=== PATIENT | male | born 1970 | race Caucasian/White ===

== ENCOUNTER 2017-09-12 12:37 | Inpatient (IN) | payer BC ==
[~2017-09-12 12:37] MED LIST: BUPIVACAINE 0.25%/EPI (MDV) 50 ML VIAL INJ; SUGAMMADEX SODIUM 200 MG/2 ML VIAL IV
[2017-09-12] MEDS: ONDANSETRON 4 MG INJ IV ×2 (13:28→18:17)
[2017-09-12] MEDS: SOD CHLORIDE 0.9% 1,000 ML IV ×3 (13:28→23:47)
[2017-09-12] MEDS: morphine 4 MG/ML VIAL IV (13:28)
[2017-09-12 13:36] LABS: ADD MAN DIFF? NO
[2017-09-12 13:39] LABS: BASOPHILS % 0.3 % (0.0-2.0); EOSINOPHILS # 0.1 10^3/ul (0.0-0.5); EOSINOPHILS % 0.9 % (0.0-7.0); LYMPHOCYTES # 1.7 10^3/ul (0.8-2.9); LYMPHOCYTES % 14.7 % (15.0-51.0); MEAN CORPUSCULAR HEMOGLOBIN 30.2 pg (29.0-33.0); MEAN CORPUSCULAR HGB CONC 34.1 g/dl (32.0-37.0); MEAN CORPUSCULAR VOLUME 88.4 fl (82.0-101.0); MEAN PLATELET VOLUME 9.9 fl (7.4-10.4); MONOCYTES % 8.9 % (0.0-11.0); NEUTROPHIL # 8.7 10^3/ul (1.6-7.5); NEUTROPHILS % 74.9 % (39.0-77.0); PLATELET COUNT 234 10^3/UL (140-415); RED BLOOD COUNT 4.64 10^6/ul (4.70-6.10); RED CELL DISTRIBUTION WIDTH 12.7 % (11.5-14.5)
[2017-09-12 13:39] LABS: WHITE BLOOD COUNT 11.7 10^3/ul (4.8-10.8)
[2017-09-12 13:58] LABS: ALANINE AMINOTRANSFERASE 45 IU/L (13-69); ALBUMIN 4.5 g/dl (3.3-4.9); ALBUMIN/GLOBULIN RATIO 1.36; ALKALINE PHOSPHATASE 67 IU/L (42-121); ANION GAP 13 (8-16); ASPARTATE AMINO TRANSFERASE 31 IU/L (15-46); BILIRUBIN,INDIRECT 0.7 mg/dl (0-1.1); BILIRUBIN,TOTAL 0.7 mg/dl (0.2-1.3); BLOOD UREA NITROGEN 15 mg/dl (7-20); CALCIUM 9.4 mg/dl (8.4-10.2); CARBON DIOXIDE 30 mmol/L (21-31); CHLORIDE 101 mmol/L (97-110); CREATININE 0.89 mg/dl (0.61-1.24); GLUCOSE 107 mg/dl (70-220); LIPASE 38 U/L (23-300); POTASSIUM 4.2 mmol/L (3.5-5.1); SODIUM 140 mmol/L (135-144); TOTAL PROTEIN 7.8 g/dl (6.1-8.1)
[2017-09-12] MEDS: PIPER-TAZO 3.375 GM IV (PMX) 100 ML IVPB ×2 (14:23→22:24)
[2017-09-12] MEDS: HYDROmorphONE 1 MG/ML SYG IV (14:23)
[2017-09-12 15:01] LABS: ADD UMIC NO; UR ASCORBIC ACID NEGATIVE (NEGATIVE); UR BILIRUBIN (Dip) NEGATIVE (NEGATIVE); UR BLOOD (Dip) NEGATIVE (NEGATIVE); UR CLARITY CLEAR (CLEAR); UR COLOR YELLOW (YELLOW); UR GLUCOSE (Dip) NEGATIVE (NEGATIVE); UR KETONES (Dip) NEGATIVE (NEGATIVE); UR LEUKOCYTE ESTERASE (Dip) NEGATIVE Leu/ul (NEGATIVE); UR NITRITE (Dip) NEGATIVE (NEGATIVE); UR SPECIFIC GRAVITY (Dip) 1.021 (1.003-1.030); UR TOTAL PROTEIN (Dip) NEGATIVE (NEGATIVE); UR UROBILINOGEN (Dip) NEGATIVE (NEGATIVE)
[2017-09-12] MEDS ORDERED: ACETAMINOPHEN 325 MG TAB PO ×2 (15:30→16:00)
[2017-09-12] MEDS ORDERED: ONDANSETRON 4 MG INJ IV ×3 (15:30→18:00)
[2017-09-12] MEDS ORDERED: HYDROCODONE/APAP (5/325) TAB PO (16:00)
[2017-09-12] MEDS ORDERED: NACL 0.9% 3 ML SYG IV (16:00)
[2017-09-12] MEDS ORDERED: ROCURONIUM 50 MG INJ (16:52)
[2017-09-12] MEDS ORDERED: PROPOFOL 20 ML (16:52)
[2017-09-12] MEDS ORDERED: CEFAZOLIN 1 GM INJ (16:52)
[2017-09-12] MEDS ORDERED: NEOSTIGMINE 3 MG/3 ML SYRINGE (16:52)
[2017-09-12] MEDS ORDERED: GLYCOPYRROLATE 0.4 MG INJ (16:52)
[2017-09-12] MEDS ORDERED: DEXAMETHASONE 4 MG/ML 1 ML INJ (16:52)
[2017-09-12] MEDS ORDERED: FENTAnyl 50 MCG/ML VIAL (16:52)
[2017-09-12] MEDS ORDERED: ONDANSETRON 4 MG INJ (16:52)
[2017-09-12] MEDS ORDERED: MIDAZOLAM 1 MG/ML 2 ML INJ (16:52)
[2017-09-12] MEDS ORDERED: ALBUTEROL 0.083% (NEB) 2.5 MG/3 ML AMP HHN ×2 (17:30)
[2017-09-12] MEDS ORDERED: MIDAZOLAM 1 MG/ML 2 ML INJ IV (17:30)
[2017-09-12] MEDS ORDERED: MEPERIDINE 25 MG INJ IV ×2 (17:30)
[2017-09-12] MEDS ORDERED: LABETALOL HCL 20MG INJ IV ×2 (17:30)
[2017-09-12] MEDS ORDERED: OXYCODONE/ACETAMINOPHEN (5/325) TAB PO ×5 (17:30→18:00)
[2017-09-12] MEDS ORDERED: TRIMETHOBENZAMIDE 100 MG/ML VIAL IM ×2 (17:30)
[2017-09-12] MEDS ORDERED: DIPHENHYDRAMINE 50 MG INJ IV ×2 (17:30)
[2017-09-12] MEDS ORDERED: FENTAnyl 50 MCG/ML VIAL IV ×5 (17:30)
[2017-09-12] MEDS ORDERED: HYDROmorphONE (0.2 MG/ML) 10ML SYG IV ×6 (17:30)
[2017-09-12] MEDS ORDERED: IPRATROPIUM (NEB) 0.5 MG/2.5 ML AMP HHN ×2 (17:30)
[2017-09-12] MEDS ORDERED: EPHEDrine SULFATE 50 MG/5 ML SYG IV ×2 (17:30)
[2017-09-12] MEDS ORDERED: hydrALAzine 20 MG INJ IV ×2 (17:30)
[2017-09-12] MEDS: BUPIVACAINE 0.25%/EPI (SDV) 30 ML INJ INJ (17:34)
[2017-09-12] MEDS ORDERED: KETOROLAC 30 MG INJ (17:45)
[2017-09-12] MEDS ORDERED: morphine 2 MG INJ IV (18:00)
[2017-09-12] MEDS: FENTAnyl 50 MCG/ML VIAL IV ×2 (18:17→18:55)
[2017-09-12] MEDS: MIDAZOLAM 1 MG/ML 2 ML INJ IV (18:23)
[2017-09-12] MEDS: OXYCODONE/ACETAMINOPHEN (5/325) TAB PO (22:24)
[2017-09-13] MEDS: morphine 2 MG INJ IV ×2 (03:22→08:19)
[2017-09-13 05:37] LABS: ADD MAN DIFF? NO
[2017-09-13] MEDS: SOD CHLORIDE 0.9% 1,000 ML IV (05:37)
[2017-09-13] MEDS: PIPER-TAZO 3.375 GM IV (PMX) 100 ML IVPB (05:37)
[2017-09-13 05:41] LABS: HEMOGLOBIN 12.6 g/dl (14.0-18.0); LYMPHOCYTES # 0.7 10^3/ul (0.8-2.9); LYMPHOCYTES % 7.5 % (15.0-51.0); MEAN CORPUSCULAR HEMOGLOBIN 30.3 pg (29.0-33.0); MEAN CORPUSCULAR HGB CONC 34.1 g/dl (32.0-37.0); MEAN CORPUSCULAR VOLUME 88.9 fl (82.0-101.0); MEAN PLATELET VOLUME 10.4 fl (7.4-10.4); MONOCYTE # 0.2 10^3/ul (0.3-0.9); MONOCYTES % 2.5 % (0.0-11.0); NEUTROPHIL # 8.2 10^3/ul (1.6-7.5); NEUTROPHILS % 89.6 % (39.0-77.0); PLATELET COUNT 219 10^3/UL (140-415); RED BLOOD COUNT 4.16 10^6/ul (4.70-6.10); RED CELL DISTRIBUTION WIDTH 12.5 % (11.5-14.5)
[2017-09-13 05:41] LABS: WHITE BLOOD COUNT 9.1 10^3/ul (4.8-10.8)
[2017-09-13 05:59] LABS: PHOSPHORUS 3.2 mg/dl (2.5-4.9)
[2017-09-13 05:59] LABS: CHOL/HDL RATIO 2.6 RATIO; CHOLESTEROL 136 mg/dl (100-200); HDL CHOLESTEROL 51 mg/dl (27-67); LDL CHOLESTEROL,CALCULATED 78 mg/dl; MAGNESIUM 1.8 mg/dl (1.7-2.5); TRIGLYCERIDES 37 mg/dl (0-149)
[2017-09-13 06:09] LABS: ALANINE AMINOTRANSFERASE 35 IU/L (13-69); ALBUMIN 3.7 g/dl (3.3-4.9); ALBUMIN/GLOBULIN RATIO 1.19; ALKALINE PHOSPHATASE 50 IU/L (42-121); ANION GAP 12 (8-16); ASPARTATE AMINO TRANSFERASE 23 IU/L (15-46); BILIRUBIN,INDIRECT 0.5 mg/dl (0-1.1); BILIRUBIN,TOTAL 0.5 mg/dl (0.2-1.3); BLOOD UREA NITROGEN 12 mg/dl (7-20); CARBON DIOXIDE 25 mmol/L (21-31); CHLORIDE 104 mmol/L (97-110); CREATININE 0.81 mg/dl (0.61-1.24); GLUCOSE 165 mg/dl (70-220); POTASSIUM 4.3 mmol/L (3.5-5.1); SODIUM 137 mmol/L (135-144); TOTAL PROTEIN 6.8 g/dl (6.1-8.1)
[2017-09-13 06:18] LABS: INR 1.11; PROTIME 14.5 Sec (11.9-14.9); PT RATIO 1.1
[2017-09-13 06:26] LABS: FREE T4 (FREE THYROXINE) 0.68 ng/dl (0.64-1.79)
[2017-09-13 06:27] LABS: THYROID STIMULATING HORMONE 0.466 MIU/L (0.465-4.680)
[2017-09-13 08:01] LABS: HEMOGLOBIN A1C 5.6 % (0-5.9)
[2017-09-14] MEDS ORDERED: INFLUENZA VIRUS VACCINE 0.5 ML (DISPENSING) IM* (09:00)
== END 2017-09-13 10:00 | disposition home or self-care (01) | DRG 340 ==
LOC: FTE 12:37 → REC 15:08 → MS2 20:00
PROC: 0DTJ4ZZ Resection of Appendix, Percutaneous Endoscopic Approach (ICD-10-PCS; principal; 2017-09-12 16:57)
DX: K35.3 Acute appendicitis with localized peritonitis (principal); F17.200 Nicotine dependence, unspecified, uncomplicated; K57.30 Diverticulosis of large intestine without perforation or abscess without bleeding
CPT/HCPCS: 36415; 74176; 80053; 80061; 81003; 83036; 83690; 83735; 84100; 84439; 84443; 85025; 85610; 85730; 87070; 87075; 88304; 96374; 96375; 99285-25